=== PATIENT | female | born 1960 | race Caucasian/White ===

== ENCOUNTER 2024-07-31 14:00 | Emergency (ER) | payer BC, OTHER ==
[2024-07-31] MEDS ORDERED: cloNIDine HCL 0.1 MG TAB ONE (14:46)
[2024-07-31 14:53] LABS: Absolute Basophils 0.1 K/uL (0-0.5); Absolute Eosinophils 0.3 K/uL (0-0.5); Absolute Lymphocytes (CBC) 2.3 K/uL (0.7-4.9); Absolute Monocytes 0.8 K/uL (0.1-1.3); Absolute Neutrophil 6.7 K/uL (1.8-8.0); Basophils % 0.8 % (0-1.3); Eosinophils % 2.5 % (0-4.4); Hematocrit 30.9 % (36.0-45.0); Hemoglobin 10.3 g/dL (12.0-15.0); Lymphocytes % 22.8 % (15.3-44.8); MCH 25.1 pg (27.0-35.0); MCHC 33.5 g/dL (32.0-36.0); MCV 74.9 fL (80-100); MPV 7.2 fL (7.6-11.3); Monocytes % 7.8 % (3.3-12.3); Neutrophils % 66.1 % (41.7-73.7); Platelets 278 thou/uL (152-406); RBC Red Blood Cell Count 4.12 M/uL (3.86-4.86); Red Cell Distribution Width 15.4 % (12.1-15.2)
[2024-07-31 15:10] LABS: Anion Gap 7.9 mEq/L (5.0-15.0); Potassium 3.9 mEq/L (3.5-5.1); Troponin High Sensitivity 4.1 pg/mL (<58.9)
--- NOTE | 2024-07-31 15:42 | EDPHYS ---
Physician Documentation [facility] Name: Stacie Erickson Age: 64 yrs Sex: Female : 1960 Arrival Date: 07/31/2024 Time: 14:00 Bed 23 Private MD: ED Physician Sang Heller HPI: 07/31 15:02 This 64 yrs old Female presents to ER via Ambulatory with complaints of High Blood rn Pressure, High Blood Sugar. 15:02 The patient has elevated blood pressure and discovered this at home. Onset: The rn symptoms/episode began/occurred at an unknown time. Modifying factors:. Severity of symptoms: At its worst the blood pressure was moderate. The patient has experienced similar episodes in the past. Patient reports high blood sugar and high blood pressure. Reports intermittent dizzy spells associated with headache and fatigue. Reports gets like this when blood pressure is high. Takes carvedilol 6.25 mg twice daily and medication has not been changed for some time. Sees Dr. Dixon. No chest pain or shortness of breath. No fever or chills.. Historical: - Allergies: 14:23 Sulfa (Sulfonamide Antibiotics); iw - PMHx: 14:14 Hypertensive disorder; Diabetes mellitus; iw - Immunization history:: Adult Immunizations up to date. - Infectious Disease History:: Denies. - Social history:: Smoking status: Patient denies any tobacco usage or history of. - Family history:: not pertinent. - Hospitalizations: : No recent hospitalization is reported. ROS: 15:02 Constitutional: Negative for fever, chills, and weight loss, Neck: Negative for injury, rn pain, and swelling, Cardiovascular: Negative for chest pain, palpitations, and edema, Respiratory: Negative for shortness of breath, cough, wheezing, and pleuritic chest pain, Abdomen/GI: Negative for abdominal pain, nausea, vomiting, diarrhea, and constipation, Back: Negative for injury and pain, MS/Extremity: Negative for injury and deformity, Skin: Negative for injury, rash, and discoloration, Neuro: Positive for headache and generalized weakness Exam: 15:02 Constitutional: This is a well developed, well nourished patient who is awake, alert, rn and in no acute distress. Head/Face: Normocephalic, atraumatic. Neck: No meningismus Cardiovascular: Regular rate and rhythm. No pulse deficits. Respiratory: No increased work of breathing, no retractions or nasal flaring. Abdomen/GI: Soft, non-tender MS/ Extremity: Pulses equal, no cyanosis. Neurovascular intact. Full, normal range of motion. Equal circumference. Neuro: Awake and alert, GCS 15, oriented to person, place, time, and situation. Cranial nerves II-XII grossly intact. Motor strength 5/5 in all extremities. Sensory grossly intact. Cerebellar exam normal. Normal gait. 15:41 ECG was reviewed by the Attending Physician. rn Vital Signs: 14:14 BP 220 / 100; Pulse 75; Resp 16; Temp 97.8; Pulse Ox 100% on R/A; iw 15:18 BP 173 / 76; Pulse 66; Resp 16; Pulse Ox 99% on R/A; jb4 16:07 BP 129 / 67; Pulse 58; Resp 16; Pulse Ox 96% on R/A; jb4 MDM: 14:12 Medical Screening Exam initiated rn 15:37 Differential diagnosis: hypertensive crisis, Malignant HTN. Data reviewed: vital signs, rn nurses notes, lab test result(s), and as a result, I will discharge patient. Counseling: I had a detailed discussion with the patient and/or guardian regarding the historical points, exam findings, and any diagnostic results supporting the discharge/admit diagnosis, lab results, the need for outpatient follow up, to return to the emergency department if symptoms worsen or persist or if there are any questions or concerns that arise at home. Special discussion: I discussed with the patient/guardian in detail that at this point there is no indication for admission to the hospital. It is understood, however, that if the symptoms persist or worsen the patient needs to return immediately for re-evaluation. ED course: No evidence of endorgan damage. Patient already aware of mild renal insufficiency. She has been referred to nephrology by her PCP. Urged her to follow-up with PCP and obtain blood pressure diary, likely will need increase or change of her blood pressure medication.. 07/31 14:20 Order name: Basic Metabolic Panel; Complete Time: 15:11 rn 07/31 14:20 Order name: CBC with Diff; Complete Time: 15: rn 07/31 14:20 Order name: NT PRO-BNP; Complete Time: 15: rn 07/31 14:20 Order name: Troponin HS; Complete Time: 15:11 rn 07/31 14:20 Order name: Cardiac monitoring; Complete Time: 15:55 rn 07/31 14:20 Order name: EKG - Nurse/Tech; Complete Time: 15:55 rn 07/31 14:20 Order name: IV Saline Lock; Complete Time: 14:47 rn 07/31 14:20 Order name: Labs collected and sent; Complete Time: 15:16 rn 07/31 14:20 Order name: O2 Per Protocol; Complete Time: 15:16 rn 07/31 14:20 Order name: O2 Sat Monitoring; Complete Time: 15:16 rn EC:41 Rate is 64 beats/min. Rhythm is regular. QRS is positive in lead I and negative in lead rn aVF. QRS interval is normal. QT interval is normal. No Q waves. T waves are Normal. No ST changes noted. Clinical impression: NSR w/ Non-specific ST/T Changes. Interpreted by me. Reviewed by me. Administered Medications: 14:53 Drug: cloNIDine PO 0.1 mg PO once Route: PO; iw 15:55 Follow up: Response: No adverse reaction; Marked relief of symptoms jb4 Disposition Summary: 07/31/24 15:41 Discharge Ordered Notes: Location: Home rn Problem: chronic rn Symptoms: have improved rn Condition: Stable rn Diagnosis - Essential (primary) hypertension rn Followup: rn - With: Private Physician - When: As needed - Reason: Recheck today's complaints, Re-evaluation by your physician Discharge Instructions: - Discharge Summary Sheet rn - Hypertension, Adult rn - How to Take Your Blood Pressure, [id number] rn - Managing Your Hypertension rn Forms: - Medication Reconciliation Form rn - 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 EDMS EDMS 14:20 14:20 CBC+H.LAB.BRZ ordered. EDMS EDMS 14:20 14:20 PROBNP+C.LAB.BRZ ordered. EDMS EDMS 14:20 14:20 Troponin High Sensitivity+C.LAB.BRZ ordered. EDMS EDMS
--- NOTE | 2024-07-31 15:42 | ER ---
Nurse's Notes [facility] Name: Stacie Erickson Age: 64 yrs Sex: Female : 1960 Arrival Date: 07/31/2024 Time: 14:00 Bed 23 Private MD: Diagnosis: Essential (primary) hypertension Presentation: 07/31 14:14 Coronavirus screen: At this time, the client does not indicate any symptoms associated iw with coronavirus-19. Ebola Screen: No symptoms or risks identified at this time. Initial Sepsis Screen: Does the patient meet any 2 criteria? No. Patient's initial sepsis screen is negative. Does the patient have a suspected source of infection? No. Patient's initial sepsis screen is negative. Risk Assessment: Do you want to hurt yourself or someone else? Patient reports no desire to harm self or others. 14:14 Acuity: TIFFANY 3 iw 14:14 Method Of Arrival: Ambulatory iw 14:15 Chief complaint: Patient states: BP has been running high and BS has been running iw higher than normal. Historical: - Allergies: 14:23 Sulfa (Sulfonamide Antibiotics); iw - PMHx: 14:14 Hypertensive disorder; Diabetes mellitus; iw - Immunization history:: Adult Immunizations up to date. - Infectious Disease History:: Denies. - Social history:: Smoking status: Patient denies any tobacco usage or history of. - Family history:: not pertinent. - Hospitalizations: : No recent hospitalization is reported. Screenin:18 [facility] ED Fall Risk Assessment (Adult) History of falling in the last 3 months, jb4 including since admission No falls in past 3 months (0 pts) Confusion or Disorientation No (0 pts) Intoxicated or Sedated No (0 pts) Impaired Gait No (0 pts) Mobility Assist Device Used No (0 pt) Altered Elimination No (0 pt) Score/Fall Risk Level 0 - 2 = Low Risk Oriented to surroundings, Maintained a safe environment. Abuse screen: Denies threats or abuse. Nutritional screening: No deficits noted. Tuberculosis screening: No symptoms or risk factors identified. Assessment: 15:18 General: Appears in no apparent distress. comfortable, Behavior is calm, cooperative, jb4 appropriate for age. Pain: Denies pain. Neuro: Level of Consciousness is awake, alert, obeys commands, Oriented to person, place, time, situation. Cardiovascular: Patient's skin is warm and dry. Respiratory: Airway is patent Respiratory effort is even, unlabored, Respiratory pattern is regular, symmetrical. Derm: Skin is intact, Skin is pink, warm \T\ dry. Musculoskeletal: Circulation, motion, and sensation intact. Range of motion: intact in all extremities. 16:07 Reassessment: Patient appears in no apparent distress at this time. Patient and/or jb4 family updated on plan of care and expected duration. Pain level reassessed. Patient is alert, oriented x 3, equal unlabored respirations, skin warm/dry/pink. Vital Signs: 14:14 BP 220 / 100; Pulse 75; Resp 16; Temp 97.8; Pulse Ox 100% on R/A; iw 15:18 BP 173 / 76; Pulse 66; Resp 16; Pulse Ox 99% on R/A; jb4 16:07 BP 129 / 67; Pulse 58; Resp 16; Pulse Ox 96% on R/A; jb4 ED Course: 14:06 Patient arrived in ED. al6 14:06 Sang Heller MD is Attending Physician. rn 14:14 Triage completed. iw 14:24 Arm band placed on. iw 14:40 Missed attempt(s): 20 gauge in left antecubital area. Bleeding controlled, band aid bc6 applied, catheter tip intact. 14:47 Basic Metabolic Panel Sent. bc6 14:47 CBC with Diff Sent. bc6 14:47 NT PRO-BNP Sent. bc6 14:47 Troponin HS Sent. bc6 14:47 Initial lab(s) drawn, by [place], sent to lab. Inserted saline lock: 22 gauge in left bc6 antecubital area, using aseptic technique. Blood collected. Flushed with 10 mL NS. 15:11 Patient placed in an exam room, on a stretcher. ll1 15:18 Patient has correct armband on for positive identification. Bed in low position. Call jb4 light in reach. Side rails up X 1. Provided Education on: plan of care. 15:18 No provider procedures requiring assistance completed. jb4 16:07 Simone Marie, RN is Primary Nurse. jb4 16:07 IV discontinued, intact, bleeding controlled, No redness/swelling at site. Pressure jb4 dressing applied. Administered Medications: 14:53 Drug: cloNIDine PO 0.1 mg PO once Route: PO; iw 15:55 Follow up: Response: No adverse reaction; Marked relief of symptoms jb4 Medication: 15:18 VIS not applicable for this client. jb4 Outcome: 15:41 Discharge ordered by . rn 16:07 Discharged to home ambulatory, jb4 16:07 Condition: stable 16:07 Discharge instructions given to patient, Instructed on discharge instructions, follow up and referral plans. Demonstrated understanding of instructions, follow-up care, 16:10 Patient left the ED. jb4 Signatures: Nery Mcdowell RN RN iw Nieto, Roman, MD MD rn Bryson, James, RN RN jb4 Maritza Mccauley RN RN ll1 Shyann Dailey6 Lizz Mcdowell6
[2024-07-31 16:15] VITALS: TEMP 97.8
[2024-07-31 16:18] VITALS: BP 129/67; O2SAT 96
--- NOTE | 2024-08-02 16:52 | EKG ---
Test Date: 2024-07-31 Test Time: 15:35:45 Flaring Machine Operator: SEFERINO MEASUREMENT RESULTS: Intervals: Rate: 64 MD: 160 QRSD: 74 QT: 402 QTc: 414 [place]: P: 49 MD: 160 QRS: -71 T: 29 INTERPRETIVE STATEMENTS: Normal sinus rhythm Left axis deviation Low voltage QRS Inferior infarct, age undetermined Cannot rule out Anterior infarct, age undetermined Abnormal ECG No previous ECG available for comparison Electronically Signed On 08-02-24 16:46:10 GENERAL L[employer]OGRAPHIC WORKER by Kofi Esquivel
== END 2024-07-31 16:10 | disposition home or self-care (01) ==
LOC: ER 14:00
DX: I10 Essential (primary) hypertension (principal); E11.9 Type 2 diabetes mellitus without complications
CPT/HCPCS: 36415; 80048; 83880; 84484; 85025; 93005; 99284